=== PATIENT | male | born 2000 | race Caucasian/White ===

== ENCOUNTER 2023-03-20 12:46 | Emergency (ER) | payer OTHER, SELFPAY ==
[2023-03-20] MEDS ORDERED: Ondansetron PF 4 MG/2 ML Vial ONE (14:03)
[2023-03-20] MEDS ORDERED: KETAMINE 100 MG/ML (5ML VIAL) ONE (14:03)
[2023-03-20] MEDS ORDERED: PROPOFOL 20 ML ONE (14:04)
== END 2023-03-20 15:03 | disposition home or self-care (01) ==
LOC: CSHERS 12:46
DX: M24.412 Recurrent dislocation, left shoulder (principal); X50.0XXA Overexertion from strenuous movement or load, initial encounter; Y93.89 Activity, other specified; Y92.69 Other specified industrial and construction area as the place of occurrence of the external cause
CPT/HCPCS: 23650; 96374; 99152; J2405; J2704